=== PATIENT | male | born 1975 | race Caucasian/White ===

== ENCOUNTER 2016-07-30 08:42 | Emergency (ER) | payer BC, OTHER ==
--- NOTE | 2016-07-30 08:57 | EDM.PDOC ---
ED HPI DIABETIC EMERGENCY - General Chief Complaint: Diabetic Complaint Stated Complaint: NERVE PAIN IN LEG AND FEET Time Seen by Provider: 07/30/16 08:54 Source of Information: Reports: Patient, Old records, RN, RN notes reviewed History Limitations: Reports: No limitations - History of Present Illness INITIAL COMMENTS - FREE TEXT/NARRATIVE: C/O "diabetic nerve pain in the legs" Timing/Duration: Reports: Constant, Getting worse, Gradual onset, Waxing/waning Location, General: Reports: lower extremity, left, lower extremity, right Quality: Reports: Burning, Same as previous episode, Sharp Improves with: Reports: None Worsens with: Reports: None Associated Symptoms: Reports: no other symptoms Associated Symptoms (General): Reports: no other symptoms - Related Data Allergies/ADRs: Allergies Allergy/AdvReac Type Severity Reaction Status Date / Time No Known Allergies Allergy Verified 07/30/16 08:50 Home Meds: Home Meds Escitalopram [Lexapro] 20 mg PO DAILY 08/19/14 [History] metFORMIN [Glucophage XR] 500 mg PO BID 07/30/16 [History] Past Medical History Musculoskeletal History: Reports: Other (see below) Other Musculoskeletal History: right carpal tunnel - Infectious Disease History Infectious Disease History: Reports: MRSA - Past Surgical History GI Surgical History: Reports: Cholecystectomy Social & Family History - Family History Family Medical History: Noncontributory - Tobacco Use Smoking Status *Q: Never Smoker Second Hand Smoke Exposure: No - Alcohol Use Days Per Week of Alcohol Use: 0 - Recreational Drug Use Recreational Drug Use: No - Living Situation & Occupation Occupation: employed ED ROS GENERAL - Review of Systems Review Of Systems: ROS reveals no pertinent complaints other than HPI. ED EXAM GENERAL NO PERIP PULSE - Physical Exam Exam: See Below Exam Limited By: No limitations General Appearance: alert, WD/WN, no apparent distress, obese Throat/Mouth: Normal voice, No airway compromise Head: atraumatic, normocephalic Neck: normal inspection Respiratory/Chest: no respiratory distress, lungs clear, normal breath sounds, no accessory muscle use, chest non-tender Cardiovascular: normal peripheral pulses, regular rate, rhythm GI/Abdominal: other (obese, benign abdomen) (Male) Exam: Deferred Rectal (Males) Exam: Deferred Back Exam: normal inspection, full range of motion. No: CVA tenderness (L), CVA tenderness (R), muscle spasm, paraspinal tenderness, vertebral tenderness Extremities: normal inspection, normal range of motion, non-tender, normal capillary refill, no pedal edema Neurological: alert, oriented, CN II-XII intact, normal cognition, normal reflexes, no motor/sensory deficits (hypersensitivity to touch to left lower extremity), other (antalgic gait) Psychiatric: normal affect, normal mood Skin Exam: Warm, Dry, Intact, Normal color, No rash Course - Vital Signs Last Recorded V/S: Last Vital Signs Temp 37.2 C 07/30/16 09:41 Pulse 90 07/30/16 09:41 Resp 18 07/30/16 09:41 BP 137/93 H 07/30/16 09:41 Pulse Ox 96 07/30/16 09:41 - Radiology Interpretation Free Text/Narrative:: Xray L-spine: degenerative changes, no fractures, see Rad. report. Departure - Departure Time of Disposition: 09:51 Disposition: Home, Self-Care 01 Condition: good Clinical Impression: Lumbar radiculopathy Instructions: Lumbosacral Radiculopathy Forms: ED Department Discharge Additional Instructions: Rx: Gabapentin 300mg Follow up in clinic with Dr. Wilkes next week.
--- NOTE | 2016-07-30 09:38 | CR ---
Clinical history: 41-year-old male complaining of back pain "radiating to the left foot". Interpretation: AP lateral lumbosacral spine films confirm evidence of mild arthritis (marginal spon dylosis several levels lower thoracic and mid lumbar spine). No sign of pathologic skeletal lesion, lumbar fracture, spondylolisthesis or abnormal intervertebral disc space narrowing. Symmetric spacing normal-appearing SI and hip joints. (Surgical clips gallbladder fossa). CONCLUSION: Arthritis. No fractures or dislocation.
[2016-07-30 09:42] VITALS: BP 137/93
== END 2016-07-30 09:58 | disposition home or self-care (01) ==
LOC: DL.ED 08:42
DX: M54.16 Radiculopathy, lumbar region (principal); Z79.899 Other long term (current) drug therapy; Z90.49 Acquired absence of other specified parts of digestive tract
CPT/HCPCS: 72100; 99283

== ENCOUNTER 2019-09-16 08:48 | Emergency (ER) | payer BC, OTHER ==
[2019-09-16 09:09] VITALS: BP 157/79; PULSE 82
[2019-09-16] MEDS ORDERED: methylPREDNISolone Sodium Succinate 125 MG/2 ML SDV IM ONE (09:16)
--- NOTE | 2019-09-16 09:26 | EDM.PDOC ---
ED HPI GENERAL MEDICAL PROBLEM - General Chief Complaint: Back Pain or Injury Stated Complaint: back pain/chronic arthritis in spine Time Seen by Provider: 09/16/19 09:10 Source of Information: Reports: Patient History Limitations: Reports: No Limitations - History of Present Illness INITIAL COMMENTS - FREE TEXT/NARRATIVE: This 44 yo male patient reports to the ED with acute on chronic low back pain. The patient reports he has been seen his primary care provider about 1 month ago with similar symptoms and was started on Tramadol. The patient reports he has been referred to pain management in the past and was given a muscle relaxer , but no additional medications. The patient reports he did take ibuprofen yesterday, but did not have any relief. Onset: Gradual Duration: Day(s):, Constant Location: Reports: Other Quality: Reports: Other Severity: Moderate Improves with: Reports: None Worsens with: Reports: None Context: Reports: Other Back Pain Score (Numeric/FACES): 11 - Related Data Allergies Allergy/AdvReac Type Severity Reaction Status Date / Time No Known Allergies Allergy Verified 09/16/19 09:08 Home Meds: Home Meds Escitalopram [Lexapro] 20 mg PO DAILY 08/19/14 [History] Simvastatin 10 mg PO DAILY 09/16/19 [History] Past Medical History Musculoskeletal History: Reports: Arthritis, Back Pain, Chronic, Other (See Below) Other Musculoskeletal History: right carpal tunnel Psychiatric History: Reports: Anxiety Endocrine/Metabolic History: Reports: Diabetes, Type II, Obesity/BMI 30+ Other Endocrine/Metabolic History: off diabetic medications, states A1C improved - Infectious Disease History Infectious Disease History: Reports: MRSA - Past Surgical History GI Surgical History: Reports: Cholecystectomy Social & Family History - Family History Family Medical History: Noncontributory - Tobacco Use Smoking Status *Q: Never Smoker - Caffeine Use Caffeine Use: Reports: None - Recreational Drug Use Recreational Drug Use: Yes Recreational Drug Type: Reports: Marijuana/Hashish - Living Situation & Occupation Occupation: Employed ED ROS GENERAL - Review of Systems Review Of Systems: Comprehensive ROS is negative, except as noted in HPI. ED EXAM,LOWER BACK PAIN/INJURY - Physical Exam Exam: See Below Exam Limited By: No Limitations General Appearance: Alert, WD/WN, Moderate Distress, Obese Eye Exam: Bilateral Eye: EOMI, Normal Inspection, PERRL Ears: Normal External Exam, Normal Canal, Hearing Grossly Normal, Normal TMs Nose: Normal Inspection, Normal Mucosa, No Blood Throat/Mouth: Normal Inspection, Normal Lips, Normal Teeth, Normal Gums, Normal Oropharynx, Normal Voice, No Airway Compromise Head: Atraumatic, Normocephalic Neck: Normal Inspection, Supple, Non-Tender, Full Range of Motion Respiratory/Chest: No Respiratory Distress, Lungs Clear, Normal Breath Sounds, No Accessory Muscle Use, Chest Non-Tender Cardiovascular: Normal Peripheral Pulses, Regular Rate, Rhythm, No Edema, No Gallop, No JVD, No Murmur, No Rub GI/Abdominal: Normal Bowel Sounds, Soft, Non-Tender, No Organomegaly, No Distention, No Abnormal Bruit, No Mass (Male) Exam: Deferred Rectal (Males) Exam: Deferred Back Exam: Muscle Spasm, Paraspinal Tenderness, Vertebral Tenderness Extremities: Normal Inspection, Normal Range of Motion, Non-Tender, No Pedal Edema, Normal Capillary Refill Neurological: Alert, Normal Mood/Affect, Normal Dorsiflexion, CN II-XII Intact, Normal Plantar Flexion, Normal Gait, Normal Reflexes, No Motor/Sensory Deficits , Oriented x 3 Psychiatric: Normal Affect, Normal Mood Skin Exam: Warm, Dry, Intact, Normal Color, No Rash Lymphatic: No Adenopathy Course - Vital Signs Last Recorded V/S: Last Vital Signs Temp 36.8 C 09/16/19 09:05 Pulse 82 09/16/19 09:05 Resp 14 09/16/19 09:05 BP 157/79 H 09/16/19 09:05 Pulse Ox 98 09/16/19 09:05 - Orders/Labs/Meds Meds: Medications Discontinued Medications Generic Name Dose Route Start Last Admin Trade Name Bib PRN Reason Stop Dose Admin Methylprednisolone Sodium Succinate 125 mg 09/16/19 09:16 09/16/19 09:24 Solu-Medrol IM 09/16/19 09:17 125 mg ONETIME ONE Administration Departure - Departure Time of Disposition: :19 Disposition: Home, Self-Care 01 Condition: Fair Clinical Impression: Low back pain Qualifiers: Chronicity: chronic Back pain laterality: bilateral Sciatica presence: without sciatica Qualified Code(s): M54.5 - Low back pain - Discharge Information *PRESCRIPTION DRUG MONITORING PROGRAM REVIEWED*: Not Applicable *COPY OF PRESCRIPTION DRUG MONITORING REPORT IN PATIENT OTONIEL: Not Applicable Instructions: Acute Back Pain, Adult, Chronic Back Pain, [id number] Forms: ED Department Discharge Care Plan Goals: The patient was advised of the examination results during the visit. The patient was given an injection of SoluMedrol (125 mg) while in the ED. The patient was discharged with a script for Prednisone (20 mg) #10 to take 2 by mouth daily for 5 days and Flexeril (10 mg) #10 to take 1 by mouth at bedtime as needed. The patient was encouraged to continue to take [id number] medications for temporary symptom relief. The patient was also encouraged to follow-up with his primary care facility for continued evaluation and further management. If the patient has any additional symptoms or concerns, the patient should either return to the emergency department or visit his primary care facility. Sepsis Event Note - Evaluation Sepsis Screening Result: No Definite Risk - Focused Exam Vital Signs: Vital Signs Temp Pulse Resp BP Pulse Ox 09/16/19 09:05 36.8 C 82 14 157/79 H 98 Date Exam was Performed: 09/16/19 Time Exam was Performed: 09:28
== END 2019-09-16 09:44 | disposition home or self-care (01) ==
LOC: DL.ED 08:48
DX: M54.5 Low back pain (principal); E11.9 Type 2 diabetes mellitus without complications; F41.9 Anxiety disorder, unspecified; M19.90 Unspecified osteoarthritis, unspecified site; E66.9 Obesity, unspecified; Z68.34 Body mass index [BMI] 34.0-34.9, adult; Z79.899 Other long term (current) drug therapy
CPT/HCPCS: 96372; 99283; J2930

== ENCOUNTER 2021-06-14 07:56 | Emergency (ER) | payer SELFPAY ==
[2021-06-14] MEDS ORDERED: Orphenadrine 60 MG/2 ML Inj IM ONE (08:19)
[2021-06-14] MEDS ORDERED: Ketorolac 30 MG/ML SDV IM ONE (08:19)
[2021-06-14 10:28] VITALS: BP 144/98; PULSE 87
== END 2021-06-14 10:23 | disposition home or self-care (01) ==
LOC: DL.ED 07:56
DX: M47.816 Spondylosis without myelopathy or radiculopathy, lumbar region (principal); M54.41 Lumbago with sciatica, right side; E78.00 Pure hypercholesterolemia, unspecified; E11.9 Type 2 diabetes mellitus without complications; E66.9 Obesity, unspecified; Z79.899 Other long term (current) drug therapy; Z68.34 Body mass index [BMI] 34.0-34.9, adult
CPT/HCPCS: 72100; 96372; 99283; J1885; J2360

== ENCOUNTER 2021-07-02 13:16 | Emergency (ER) | payer BC ==
[2021-07-02] MEDS ORDERED: Ketorolac 30 MG/ML SDV IM ONE (13:38)
[2021-07-02] MEDS ORDERED: Orphenadrine 60 MG/2 ML Inj IM ONE (13:38)
[2021-07-02] MEDS ORDERED: Acetaminophen 500 MG Tab PO ONE (13:38)
[2021-07-02 13:40] VITALS: BP 143/101; PULSE 76
== END 2021-07-02 14:10 | disposition home or self-care (01) ==
LOC: DL.ED 13:16
DX: S16.1XXA Strain of muscle, fascia and tendon at neck level, initial encounter (principal); F07.81 Postconcussional syndrome; G44.309 Post-traumatic headache, unspecified, not intractable; E78.00 Pure hypercholesterolemia, unspecified; E11.9 Type 2 diabetes mellitus without complications; E66.9 Obesity, unspecified; Z68.33 Body mass index [BMI] 33.0-33.9, adult; Z79.899 Other long term (current) drug therapy; W00.9XXA Unspecified fall due to ice and snow, initial encounter
CPT/HCPCS: 96372; 99283; A9270; J1885; J2360

== ENCOUNTER 2023-08-21 22:25 | Emergency (ER) | payer SELFPAY ==
[2023-08-21 22:54] VITALS: BP 138/84; PULSE 84
[2023-08-21 23:37] LABS: APPEARANCE,URINE CLEAR (CLEAR); BILIRUBIN,URINE NEGATIVE (NEGATIVE); COLOR,URINE YELLOW (YELLOW); GLUCOSE,URINE 100 (NEGATIVE); KETONES,URINE NEGATIVE (NEGATIVE); LEUKOCYTE ESTERASE,URINE NEGATIVE (NEGATIVE); NITRITE,URINE NEGATIVE (NEGATIVE); OCCULT BLOOD,URINE NEGATIVE (NEGATIVE); PROTEIN,URINE NEGATIVE (NEGATIVE); UROBILINOGEN,URINE 0.2 mg/dL (0.2-1.0)
[2023-08-21 23:39] LABS: AMPHETAMINES,URINE NEGATIVE (NEGATIVE); BARBITURATES,URINE NEGATIVE (NEGATIVE); BENZODIAZEPINE,URINE NEGATIVE (NEGATIVE); MDMA (ECSTASY), URINE NEGATIVE (NEGATIVE); METHADONE,URINE NEGATIVE (NEGATIVE); METHAMPHETAMINES,URINE NEGATIVE (NEGATIVE); OPIATES,URINE NEGATIVE (NEGATIVE); OXYCODONE,URINE NEGATIVE (NEGATIVE); PHENCYCLIDINE,URINE NEGATIVE (NEGATIVE); TCA,URINE NEGATIVE (NEGATIVE)
[2023-08-21 23:43] LABS: HEMOGLOBIN A1C 5.9 % (<5.7)
[2023-08-21 23:45] LABS: HEMATOCRIT 43.6 % (40.0-54.0); HEMOGLOBIN 14.9 g/dL (14.0-18.0); MEAN CORPUSCULAR HEMOGLOBIN 30.2 pg (27.0-34.0); MEAN CORPUSCULAR HGB CONC 34.2 g/dL (33.0-35.0); MEAN CORPUSCULAR VOLUME 88.3 fL (80-100); PLATELET COUNT,PLT 220 10^3/uL (150-450); RED BLOOD CELL COUNT 4.94 10^6/uL (4.6-6.2)
[2023-08-21 23:47] LABS: LYMPHOCYTES PERCENT AUTO 23.4 % (20.5-50.1); NEUTROPHILS PERCENT AUTO 64.8 % (42.2-75.2)
[2023-08-21 23:48] LABS: BASOPHILS PERCENT AUTO 0.8 % (0.0-1.0); EOSINOPHILS PERCENT AUTO 3.3 % (1.0-3.0); MONOCYTES PERCENT AUTO 7.7 % (2-8)
[2023-08-21 23:52] LABS: EOSINOPHILS PERCENT MAN 2 % (1-3); LYMPHOCYTES PERCENT MAN 26 % (20-50); MONOCYTES PERCENT MAN 5 % (2-8); SEG NEUTROPHILS PERCENT MAN 66 % (42-75)
[2023-08-22 00:05] LABS: A/G RATIO 1.1; ALANINE AMINOTRANSFERASE,ALT 32 U/L (16-63); ALBUMIN 3.6 g/dL (3.4-5.0); ALKALINE PHOSPHATASE 76 U/L (46-116); ANION GAP 9.9 mEq/L (7-13); ASPARTATE AMNIOTRANSFERASE,AST 16 U/L (15-37); BILIRUBIN TOTAL 0.2 mg/dL (0.2-1.0); BLOOD UREA NITROGEN,BUN 15 mg/dL (7-18); BUN/CREATININE RATIO 16.7 (No establ ref range); CALCIUM 8.5 mg/dL (8.5-10.1); CARBON DIOXIDE,CO2 29 mmol/L (21-32); CHLORIDE,CL 104 mmol/L (98-107); GLUCOSE RANDOM 151 mg/dL (70-99); POTASSIUM,K 3.9 mmol/L (3.5-5.1); PROTEIN TOTAL,TP 6.8 g/dL (6.4-8.2); SODIUM,NA 139 mmol/L (136-145); TSH ULTRASENSITIVE 2.32 uIU/mL (0.36-3.74)
[2023-08-22 00:12] LABS: ESTIMATED GFR 105 mL/min (>=60); ETHANOL BLOOD MEDICAL < 3 mg/dL (0)
== END 2023-08-22 00:34 | disposition home or self-care (01) ==
LOC: DL.ED 22:25
DX: R07.89 Other chest pain (principal); R10.9 Unspecified abdominal pain; E78.00 Pure hypercholesterolemia, unspecified; E11.9 Type 2 diabetes mellitus without complications; Z79.899 Other long term (current) drug therapy; Z90.49 Acquired absence of other specified parts of digestive tract; Z87.891 Personal history of nicotine dependence
CPT/HCPCS: 36415; 80053; 80305-QW; 80307; 81003; 83036; 84443; 84484; 85025; 93005; 99285

== ENCOUNTER 2024-03-31 04:49 | Emergency (ER) | payer SELFPAY ==
[2024-03-31] MEDS ORDERED: Sodium Chloride 0.9% 10 ML Syringe FLUSH PRN (05:09)
[2024-03-31 05:18] LABS: BASOPHILS PERCENT AUTO 0.2 % (0.0-1.0); EOSINOPHILS PERCENT AUTO 1.2 % (1.0-3.0); HEMATOCRIT 42.4 % (40.0-54.0); HEMOGLOBIN 14.8 g/dL (14.0-18.0); LYMPHOCYTES PERCENT AUTO 25.1 % (20.5-50.1); MEAN CORPUSCULAR HEMOGLOBIN 30.2 pg (27.0-34.0); MEAN CORPUSCULAR HGB CONC 34.9 g/dL (33.0-35.0); MEAN CORPUSCULAR VOLUME 86.5 fL (80-100); NEUTROPHILS PERCENT AUTO 65.5 % (42.2-75.2); PLATELET COUNT,PLT 277 10^3/uL (150-450); WHITE BLOOD CELL COUNT,WBC 11.1 10^3/uL (5.0-10.0)
[2024-03-31] MEDS: fentaNYL 100 MCG/2 ML SDV IVPUSH ONE ×2 (05:18→07:26)
[2024-03-31] MEDS: Iopamidol 612 MG/ML 100 ML Bottle IVPUSH ONE (05:25)
[2024-03-31 05:41] LABS: A/G RATIO 1.2; ALANINE AMINOTRANSFERASE,ALT 37 U/L (16-63); ALBUMIN 3.9 g/dL (3.4-5.0); ALKALINE PHOSPHATASE 65 U/L (46-116); ANION GAP 12.7 mEq/L (7-13); ASPARTATE AMNIOTRANSFERASE,AST 18 U/L (15-37); BILIRUBIN TOTAL 0.5 mg/dL (0.2-1.0); BLOOD UREA NITROGEN,BUN 13 mg/dL (7-18); BUN/CREATININE RATIO 14.3 (No establ ref range); CARBON DIOXIDE,CO2 28 mmol/L (21-32); CHLORIDE,CL 101 mmol/L (98-107); CREATININE 0.91 mg/dL (0.70-1.30); EST CRCL DRUG DOSING (CG) 99.27 mL/min; ESTIMATED GFR 104 mL/min (>=60); GLUCOSE RANDOM 114 mg/dL (70-99); LIPASE 26 U/L (16-77); POTASSIUM,K 3.7 mmol/L (3.5-5.1); PROTEIN TOTAL,TP 7.1 g/dL (6.4-8.2); SODIUM,NA 138 mmol/L (136-145)
[2024-03-31] MEDS: GI Cocktail Oral Solution 30 ML PO ONE (09:23)
[2024-03-31] MEDS: Pantoprazole 40 MG Vial IVPUSH ONE (09:23)
[2024-03-31 10:13] VITALS: BP 138/101; PULSE 75
== END 2024-03-31 10:10 | disposition home or self-care (01) ==
LOC: DL.ED 04:49
DX: K29.70 Gastritis, unspecified, without bleeding (principal); K29.80 Duodenitis without bleeding; E78.00 Pure hypercholesterolemia, unspecified; E11.9 Type 2 diabetes mellitus without complications; E66.9 Obesity, unspecified; Z68.23 Body mass index [BMI] 23.0-23.9, adult; Z90.49 Acquired absence of other specified parts of digestive tract; Z79.891 Long term (current) use of opiate analgesic; Z79.899 Other long term (current) drug therapy
CPT/HCPCS: 36415; 74177; 80053; 83690; 84484; 85025; 93005; 96374; 96375; 96376; 99284; A9270; J2470; J3010; Q9967; 93010